=== PATIENT | female | born 1955 | race Two or more races ===

== ENCOUNTER 2025-08-08 08:12 | Emergency (ER) | payer MEDICAID, OTHER ==
[~2025-08-08] VITALS: Ht 160 cm; Wt 81.8 kg
--- NOTE | 2025-08-08 08:23 | ED.PDOC ---
GI ASSESSMENT HPI Comments This is a 70 year old female FAUZIA presenting to the ED with chief complaint of abdominal pain. Patient reports that she has been experiencing LLQ abdominal pain with associated constipation for the past week with no bowel movement made since onset. Patient relays that she has tried laxatives with no relief. Patient states that she had a recent UTI diagnosed by [facility] earlier this month, finishing a course of Keflex for it. Patient denies any N/V/D, dizziness, fever, chills, melena, or chest pain. Time Seen by MD: 08:21 Reviewed Notes: Nurses Notes, Commercial Collections Specialist Notes, Medications, Allergies Allergies: Coded Allergies: NO KNOWN ALLERGIES (Unverified , 08/08/25) Information Source: Patient, Emergency Med Personnel Mode of Arrival: EMS Timing: Days Duration: Since onset Prehospital treatment: None Quality: Aching Vomitus: None Stool: Impaction Severity: Moderate Recent: None Recent Hx of: None Pain Location: LLQ Modifying Factors: Nothing Associated sign and symptoms: Constipation, Abdominal Pain Past Medical History PAST MEDICAL HISTORY: UTI'S Surgical History: Denies all surgeries CARE CLINICIAN History: No Pertinent CARE CLINICIAN History Family History Family History: Reviewed,noncontributory to illness Social History Smoker: Non-Smoker Alcohol: Denies ETOH Use Drugs: Denies Drug Use Lives In: Home Constitutional: denies: chills, diaphoresis, fatigue, fever, malaise, sweats, weakness, others EENTM: denies: blurred vision, double vision, ear bleeding, ear discharge, ear drainage, ear pain, ear ringing, eye pain, eye redness, hearing loss, mouth pain, mouth swelling, nasal discharge, nose bleeding, nose congestion, nose pain, photophobia, tearing, throat pain, throat swelling, voice changes, others Respiratory: denies: cough, hemoptysis, orthopnea, SOB at rest, shortness of breath, SOB with excertion, stridor, wheezing, others Cardiovascular: denies: chest pain, dizzy spells, diaphoresis, Dyspnea on exertion, edema, irregular heart beat, left arm pain, lightheadedness, palpitations, PND, syncope, others Gastrointestinal: reports: abdominal pain, constipated; denies: abdomen distended, blood streaked bowels, diarrhea, dysphagia, difficulty swallowing, hematemesis, melena, nausea, poor appetite, poor fluid intake, rectal bleeding, rectal pain, vomiting, others Genitourinary: denies: abnormal vagina bleeding, burning, dyspareunia, dysuria, flank pain, frequency, hematuria, incontinence, pain, , vagina discharge, urgency, others Neurological: denies: dizziness, fainting, headache, left sided numbness, left sided weakness, numbness, paresthesia, pre-existing deficit, right sided numbness, right sided weakness, seizure, speech problems, tingling, tremors, weakness, others Musculoskeletal: denies: back pain, gout, joint pain, joint swelling, muscle pain, muscle stiffness, neck pain, others Integumetry: denies: bruises, change in color, change in hair/nails, dryness, laceration, lesions, lumps, rash, wounds, others Allergic/Immunocompromised: denies: Difficulty Healing, Frequent Infections, Hives, Itching, others Hematologic/Lymphatic: denies: anemia, blood clots, easy bleeding, easy bruising, swollen glands, others Endocrine: denies: excessive hunger, excessive sweating, excessive thirst, excessive urination, flushing, intolerance to cold, intolerance to heat, unexplained weight gain, unexplained weight loss, others Psychiatric: denies: anxiety, bipolar disorder, depression, hopeless, panic disorder, schizophrenia, sleepless, suicidal, others All Other Systems: Reviewed and Negative Physical Exam General Appearance: Moderate Distress, Normal HEENT: Normal ENT Inspection, Pharynx Normal, TMs Normal Neck: Full Range of Motion, Non-Tender, Normal, Normal Inspection Respiratory: Chest Non-Tender, Lungs Clear, No Accessory Muscle Use, No Respiratory Distress, Normal Breath Sounds Cardiovascular: No Edema, No JVD, No Murmur, No Gallop, Normal Peripheral Pulses, Regular Rate/Rhythm Breast Exam: Deferred Gastrointestinal: No Organomegaly, Non Tender, No Pulsatile Mass, Normal Bowel Sounds, Soft Genitalia: Deferred Pelvic: Deferred Rectal: Deferred Extremities: No calf tenderness, Normal capillary refill, Normal inspection, Normal range of motion, Non-tender, No pedal edema Musculoskeletal : Apperance: Normal Neurologic: Alert, broadband engineer II-XII nml as Tested, No Motor Deficits, Normal Affect, Normal Mood, No Sensory Deficits Cerebellar Function: Normal Reflexes: Normal Skin: Dry, Normal Color, Warm Peripheral Pulses: 3+ Radial (R), 3+ Radial (L) Lymphatic: No Adenopathy EKG EKG : Pulse Rate (adult): 99 Cardiac Rhythm: NSR Was a procedure done? Was a procedure done?: No GI differential Dx Differential Diagnosis: Constipation, Diverticular disease, Esophagitis, Gastritis/PUD, Gastroenteritis X-Ray, Labs, Meds, VS Vital Signs Date Time Temp Pulse Resp B/P (MAP) Pulse Ox O2 Delivery O2 Flow Rate FiO2 08/08/25 11:38 97.5 93 19 114/66 (82) 93 97.5 08/08/25 08:44 97.8 94 19 154/69 (97) 97 97.8 08/08/25 08:44 94 19 97 Room Air 08/08/25 08:24 99 08/08/25 08:22 99 08/08/25 08:17 98.4 104 18 169/75 94 98.4 Lab Test 08/08/25 08:26 Range/Units White Blood Count 10.3 4.4-10.8 10^3/uL Red Blood Count 4.92 4.0-5.20 10^6/uL Hemoglobin 14.7 12.2-16.2 g/dL Hematocrit 42.7 36.0-46.0 % Mean Corpuscular Volume 86.9 80.0-100.0 fL Mean Corpuscular Hemoglobin 30.0 28.0-32.0 pg Mean Corpuscular Hemoglobin Concent 34.5 32.0-36.0 g/dL Red Cell Distribution Width 13.4 11.8-14.3 % Platelet Count 346 140-450 10^3/uL Mean Platelet Volume 8.4 6.9-10.8 fL Neutrophils (%) (Auto) 71.7 37.0-80.0 % Lymphocytes (%) (Auto) 20.7 10.0-50.0 % Monocytes (%) (Auto) 5.5 0.0-12.0 % Eosinophils (%) (Auto) 1.2 0.0-7.0 % Basophils (%) (Auto) 0.9 0.0-2.0 % Neutrophils # (Auto) 7.4 1.6-8.6 10 ^3/uL Lymphocytes # (Auto) 2.1 0.4-5.4 10 ^3/uL Monocytes # (Auto) 0.6 0-1.3 10 ^3/uL Eosinophils # (Auto) 0.1 0-0.8 10 ^3/uL Basophils # (Auto) 0.1 0-0.2 10 ^3/uL Nucleated Red Blood Cells 0.0 % Sodium Level 140 136-145 mmol/L Potassium Level 2.5 *L 3.5-5.1 mmol/L Chloride Level 97 L 98-107 mmol/L Carbon Dioxide Level 31 20-31 mmol/L Anion Gap 12 5-15 Blood Urea Nitrogen < 5 L 9-23 mg/dL Creatinine 0.62 0.550-1.02 mg/dL Glomerular Filtration Rate Calc 96 >90 mL/min BUN/Creatinine Ratio 8.1 L 10.0-20.0 Serum Glucose 203 H 74-106 mg/dL Calcium Level 9.1 8.7-10.4 mg/dL Current Medications Medications (Trade) Dose Ordered Sig/Reid Route Start Time Stop Time Status Last Admin Potassium Bicarbonate (Klor-Con/Ef) 50 meq ONCE ONCE PO 08/08/25 09:00 08/08/25 09:01 DC 08/08/25 09:08 Patient alert. Complaining of constipation. Was seen at [facility] a week ago for similar symptom for which she was given Keflex. Vitals stable. Answering all questions. Abdomen is soft nontender. Potassium is low. Was given potassium. She did have a bowel movement in the ER. Explained to the patient. Was told to follow up with her primary care physician. Was told to come back if there is any problem. Time of 1ST Reevaluation: 09:20 Reevaluation 1ST: Unchanged Patient Education/Counseling: Diagnosis, Treatment Family Education/Counseling: No Family Present SEPSIS Sepsis Screen Physician Orders Urinalysis (08/08/25 08:20) Electrocardigram (08/08/25 08:25) Potassium Effervesent Tab (Klor-Con/Ef) (08/08/25 12:45) Vital Signs Date Time Temp Pulse Resp B/P (MAP) Pulse Ox O2 Delivery O2 Flow Rate FiO2 08/08/25 11:38 97.5 93 19 114/66 (82) 93 97.5 08/08/25 08:44 97.8 94 19 154/69 (97) 97 97.8 08/08/25 08:44 94 19 97 Room Air 08/08/25 08:24 99 08/08/25 08:22 99 08/08/25 08:17 98.4 104 18 169/75 94 98.4 Laboratory Tests Test 08/08/25 08:26 White Blood Count 10.3 10^3/uL (4.4-10.8) Medications Medications Dose Ordered Sig/Reid Route Start Time Stop Time Status Last Admin Dose Admin Potassium Bicarbonate 50 meq ONCE ONCE PO 08/08/25 09:00 08/08/25 09:01 DC 08/08/25 09:08 Departure 1 Departure Time of Disposition: 08: Impression: Primary Impression: Hypokalemia Additional Impressions: Constipation Qualified Codes: K59.01 - Slow transit constipation Uncontrolled diabetes mellitus Qualified Codes: E13.65 - Other specified diabetes mellitus with hyperglycemia Disposition: 01 HOME / SELF CARE / HOMELESS Condition: Good Discharged With: Self Critical Care Note Critical Care Time?: No Stability Stability form required: No Heart Score Heart Score: Heart Score Response (Comments) Value History Slightly Suspicious 0 EKG Normal 0 Age >65 2 Risk Factors >3 or Hx ASHD 2 Troponin N/A 0 Total 4 I personally scribed for ANDRY CHRISTOPHER MD ([email or web address]) on 08/08/25 at 08:23. Electronically submitted by Jace Chatman ([email or web address]). I personally scribed for ANDRY CHRISTOPHER MD ([email or web address]) on 08/08/25 at 08:24. Electronically submitted by Jace Chatman ([email or web address]). ANDRY CHRISTOPHER MD Aug 08, 2025 08:23
[2025-08-08 08:39] LABS: Hematocrit 42.7 % (36.0-46.0); Hemoglobin 14.7 g/dL (12.2-16.2); Mean Corpuscular Hemoglobin 30.0 pg (28.0-32.0); Mean Corpuscular Volume 86.9 fL (80.0-100.0); Nucleated Red Blood Cells % 0.0 %
[2025-08-08 08:44] LABS: Sodium 140 mmol/L (136-145)
[2025-08-08 08:45] LABS: Anion Gap 12 (5-15); Calcium 9.1 mg/dL (8.7-10.4); Carbon Dioxide 31 mmol/L (20-31)
[2025-08-08 08:54] LABS: BUN/Creatinine Ratio 8.1 (10.0-20.0); Blood Urea Nitrogen < 5 mg/dL (9-23); Chloride 97 mmol/L (98-107); Glucose 203 mg/dL (74-106)
[2025-08-08 08:55] LABS: Potassium 2.5 mmol/L (3.5-5.1)
[2025-08-08] MEDS: POTASSIUM EFFERVESENT TAB 25 MEQ PO ONE ×2 (09:08→12:53)
[2025-08-08 12:25] VITALS: PULSE 80; RESP 14; O2SAT 97
[2025-08-08 13:22] VITALS: BP 164/59; PULSE 92; RESP 17; TEMP 97.3; O2SAT 95
--- NOTE | 2025-08-13 07:06 | ECG ---
[facility] Test Date: 2025-08-08 Test Time: 08:22:55 Pat Name: MUSA SHAH Department: ED Room: Gender: F [employer]: ER : 1955 Requested By: ANDRY CHRISTOPHER Order Number: [id number] Reading MD: James Pereira Measurements Intervals [place] Rate: 99 P: 43 MA: 182 QRS: 19 QRSD: 108 T: -17 QT: 391 QTc: 502 Interpretive Statements Sinus rhythm Incomplete left bundle branch block Left ventricular hypertrophy Inferior infarct, age indeterminate Anterior Q waves, possibly due to LVH Prolonged QT interval Electronically Signed On 08-14-2025 9:54:03 PST by James Pereira Please click the below link to view image of tracing.
== END 2025-08-08 13:22 | disposition home or self-care (01) ==
LOC: EDBD 08:12 → ER 08:12
DX: K59.00 Constipation, unspecified (principal); E87.6 Hypokalemia; E11.65 Type 2 diabetes mellitus with hyperglycemia; Z87.440 Personal history of urinary (tract) infections
CPT/HCPCS: 36415; 80048; 85025; 93005